=== PATIENT | male | born 1945 | race American Indian/Alaskan Native ===

== ENCOUNTER 2019-05-08 09:17 | Outpatient (CLI) | payer MEDICARE ==
--- NOTE | 2019-05-08 13:19 | Cat Scan Report ---
CT ABDOMEN AND PELVIS WITHOUT CONTRAST HISTORY: C61) - Malignant neoplasm of prostate COMPARISON: Bone scan performed the same day TECHNIQUE: Axial CT images were obtained through the abdomen and pelvis without IV contrast. Sagittal and coronal reformatted images. All CT scans at this location are performed using CT dose reduction for ALARA by means of automated exposure control. FINDINGS: CT ABDOMEN: Lung Bases: Clear. Liver: There are scattered liver hypodensities consistent with cysts or hemangiomas measuring up to 2 .5 cm. No suspicious liver mass or parenchymal disease. Biliary: Tiny gallstones are noted in the fundus of the gallbladder. No biliary dilatation. Spleen: No significant abnormality. Unenlarged. Pancreas: No significant abnormality. Adrenals: No significant abnormality. Kidneys: 3 simple cysts in the left kidney measuring up to 3 cm. A 1 cm hemorrhagic cyst is noted violet r the inferior pole. The right kidney and collecting systems are unremarkable. Lymphatics: No lymphadenopathy. Vasculature: There are moderate diffuse aortic calcifications. Infrarenal AAA measures 4.0 cm in diam eter Bowel/Peritoneum: No significant abnormality. No free air. No free fluid. Normal appendix. CT PELVIS: : The bladder and distal ureters are unremarkable. The prostate gland is mildly enlarged measuring 5.2 cm in diameter. Osseous Structures: No suspicious bony lesion is identified. Additional Findings: None IMPRESSION: No evidence for metastatic disease. Liver and kidney cysts as described. Cholelithiasis. 4.0 cm infrarenal AAA. Mildly enlarged prostate gland. Signer Name: Hernando Siu Jr, MD Signed: 05/08/2019 1:15 PM Workstation Name: [id number]
--- NOTE | 2019-05-08 13:20 | Nuclear Medicine Report ---
NUCLEAR MEDICINE BONE SCAN, WHOLE BODY INDICATION: C61 - Malignant neoplasm of prostate. TECHNIQUE: 25 mCi of Tc-99m MDP were injected IV. Whole body images were obtained. COMPARISON: Noncontrast CT abdomen pelvis performed same day.. FINDINGS: Skeletal Structures: There is homogeneous skeletal uptake throughout. . Skeletal Lesions: None. Soft Tissues: Normal. Kidneys: Normal, symmetric activity. Additional Findings: None. IMPRESSION: No evidence for metastatic disease to the bones.. Signer Name: Hernando Siu Jr, MD Signed: 05/08/2019 1:15 PM Workstation Name: [id number]
== END 2019-05-08 09:18 | disposition home or self-care (01) ==
LOC: NM 09:17
PROVIDERS: ATTEND Urology
DX: K80.20 Calculus of gallbladder without cholecystitis without obstruction (principal); K76.89 Other specified diseases of liver; N28.1 Cyst of kidney, acquired; I71.4 Abdominal aortic aneurysm, without rupture; N40.0 Benign prostatic hyperplasia without lower urinary tract symptoms
CPT/HCPCS: 74176; 78306; A9503

== ENCOUNTER 2019-10-07 06:32 | Observation (INO) | payer MEDICARE ==
[2019-10-03 09:54] LABS: Basophils # (Auto) 0.1 K/mm3 (0.0-0.1); Basophils % (Auto) 1.2 % (0.0-1.8); Eosinophils # (Auto) 0.1 K/mm3 (0.0-0.4); Eosinophils % (Auto) 1.4 % (0.0-4.3); Lymphocytes # (Auto) 2.6 K/mm3 (1.2-5.4); Lymphocytes % (Auto) 35.8 % (13.4-35.0); Mean Corpuscular HGB Conc 33 % (32-34); Mean Corpuscular Volume 87 fl (84-94); Monocytes # (Auto) 0.6 K/mm3 (0.0-0.8); Monocytes % (Auto) 8.3 % (0.0-7.3); Platelet Count 260 K/mm3 (140-440); Red Blood Count 4.96 M/mm3 (3.65-5.03)
--- NOTE | 2019-10-03 10:08 | Anesthesia Consultation ---
Anesthesia Consult and Med Hx Date of service: 10/03/19 - Airway Anesthetic Teeth Evaluation: Poor (loose, broken ) ROM Head & Neck: Adequate Mental/Hyoid Distance: Adequate Mallampati Class: Class III Intubation Access Assessment: Probably Good - Pulmonary Exam CTA: Yes - Cardiac Exam Cardiac Exam: RRR - Pre-Operative Health Status ASA Pre-Surgery Classification: ASA3 Proposed Anesthetic Plan: General - Pre-Anesthesia Comment Pre-Anesthesia Comments: instructed patient to refrain from marijuana use prior to surgery. 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
[2019-10-03 10:13] LABS: Alanine Aminotransferase 8 units/L (7-56); Albumin 3.9 g/dL (3.9-5); BUN/Creatinine Ratio 10; Blood Urea Nitrogen 11 mg/dL (9-20); Calcium 9.2 mg/dL (8.4-10.2); Hemolysis Index 29
[~2019-10-07 06:32] MED LIST: ACETAMINOPHEN 500 MG TAB PO ONE; CELECOXIB 200 MG CAP PO NR; GABAPENTIN 300 MG CAP PO NR; ceFAZolin/Water 2 GM/20 ML 2 GM/20 ML SYRINGE IV NR
[2019-10-07] MEDS ORDERED: BACTERIOSTATIC SODIUM CHLORIDE 0.9% 30 ML VIAL INFILTRATI ONE (06:56)
[2019-10-07] MEDS ORDERED: CALCIUM CHLORIDE 1,000 MG/10 ML SYRINGE IV ONE (07:17)
[2019-10-07] MEDS ORDERED: BUPIVACAINE-EPINEPHRINE/PF 0.5%-1:200,000 (30 ML) VIAL INFILTRATI ONE ×2 (07:17→09:59)
[2019-10-07] MEDS ORDERED: CITRIC ACID-SOD CITRATE 500 ML IV ONE (07:17)
[2019-10-07] MEDS ORDERED: THROMBIN (RECOMBINANT) 5,000 UNIT VIAL TP ONE (07:18)
[2019-10-07] MEDS ORDERED: METHYLENE BLUE 50 MG/10 ML AMP ONE (07:18)
[2019-10-07] MEDS: LACTATED RINGERS 1,000 ML IV SCH ×2 (07:30→15:18)
[2019-10-07] MEDS ORDERED: PROPOFOL 200 MG/20 ML VIAL IV ONE (07:43)
[2019-10-07] MEDS ORDERED: fentaNYL 100 MCG/2 ML INJ ONE (07:43)
[2019-10-07] MEDS ORDERED: SUCCINYLCHOLINE CHLORIDE 200 MG/10 ML INJ MDV ONE (07:46)
[2019-10-07] MEDS ORDERED: ROCURONIUM 50 MG/5 ML INJ IV ONE (07:46)
[2019-10-07] MEDS ORDERED: dexAMETHasone 20 MG/5 ML VIAL ONE (07:46)
[2019-10-07] MEDS ORDERED: ONDANSETRON 4 MG/2 ML INJ ONE (07:46)
[2019-10-07] MEDS ORDERED: LIDOCAINE PF 100 MG/5 ML (CARDIAC SYRINGE) IV ONE (07:46)
[2019-10-07] MEDS ORDERED: ePHEDrine SULFATE 50 MG/1 ML INJ ONE (08:51)
--- NOTE | 2019-10-07 09:06 | Anesthesia Day of Surgery ---
Anesthesia Day of Surgery - Day of Surgery Patient Examined: Yes Patient H&P Reviewed: Yes Patient is NPO: Yes
[2019-10-07] MEDS ORDERED: fentaNYL 100 MCG/2 ML INJ IV PRN (09:07)
[2019-10-07] MEDS ORDERED: SODIUM CHLORIDE 0.9% IRRIG SOLN 2000 ML IR ONE (09:59)
[2019-10-07] MEDS ORDERED: WATER FOR IRRIG STERILE 1,500 ML BOTTLE IR ONE (09:59)
[2019-10-07] MEDS ORDERED: METHYLENE BLUE 50 MG/10 ML AMP IV ONE (10:08)
[2019-10-07] MEDS ORDERED: GLYCOPYRROLATE 0.4 MG/2 ML INJ ONE (10:45)
[2019-10-07] MEDS ORDERED: NEOSTIGMINE 10MG/10 ML INJ MDV ONE (10:45)
[2019-10-07] MEDS ORDERED: LACTATED RINGERS 1,000 ML ONE (10:49)
[2019-10-07] MEDS ORDERED: DEXTROSE 50% IN WATER (25GM) 50 ML SYRINGE IV PRN (11:13)
[2019-10-07] MEDS ORDERED: NALOXONE 0.4 MG/1 ML INJ IV PRN (11:13)
[2019-10-07] MEDS ORDERED: ZOLPIDEM 5 MG TAB PO PRN (11:13)
[2019-10-07] MEDS ORDERED: MORPHINE 2 MG/1 ML INJ IV PRN (11:13)
[2019-10-07] MEDS ORDERED: ONDANSETRON 4 MG/2 ML INJ IV PRN (11:13)
--- NOTE | 2019-10-07 11:13 | Short Stay Summary ---
Short Stay Documentation Date of service: 10/07/19 - History H&P: obtained from office - Allergies and Medications Current Medications: Allergies No Known Allergies Allergy (Verified 09/30/19 11:48) Home Medications Medication Instructions Recorded Confirmed Last Taken Type Tamsulosin [Flomax] 0.4 mg PO QDAY 09/30/19 09/30/19 Unknown History amLODIPine [Norvasc] 10 mg PO DAILY 09/30/19 10/07/19 10/07/19 04:30 History bisoproloL fumarate [Bisoprolol 5 mg PO DAILY 09/30/19 10/07/19 10/06/19 History Fumarate] Active Medications Celecoxib (Celebrex) 200 mg PO PREOP NR Stop: 10/07/19 23:59 Last Admin: 10/07/19 07:00 Dose: 200 mg Documented by: Fentanyl (Sublimaze) 50 mcg IV Q5MIN PRN PRN Reason: Pain , Severe (7-10) Stop: 10/07/19 23:00 Gabapentin (Gabapentin) 300 mg PO PREOP NR Stop: 10/07/19 23:59 Last Admin: 10/07/19 07:00 Dose: 300 mg Documented by: Cefazolin Sodium (Ancef/Sterile Water 2 Gm/20 Ml) 2 gm in 20 mls @ 80 mls/hr IV PREOP NR; Protocol Stop: 10/07/19 23:00 Lactated Ringer's (Lactated Ringers) 1,000 mls @ 100 mls/hr IV DIRECT PRIYANK Last Admin: 10/07/19 07:30 Dose: 100 mls/hr Documented by: - Brief post op/procedure progress note Date of procedure: 10/07/19 Pre-op diagnosis: prostate cancer Post-op diagnosis: same Procedure: robotic prostatectomy Anesthesia: GETA Surgeon: ANNMARIE NANCE Estimated blood loss: other (250cc) Pathology: list (prostate) Condition: stable - Hospital course Hospital course: post op info on chart pt has bactrim & norco at home low k---supplemented - Disposition Condition at discharge: Stable Short Stay Discharge Plan Follow up with: ALE POPE MD [Primary Care Provider] - 7 Days
[2019-10-07] MEDS ORDERED: SODIUM CHLORIDE 0.9% 1000 ML 1,000 ML IV SCH (11:15)
--- NOTE | 2019-10-07 11:44 | Operative Report ---
PREOPERATIVE DIAGNOSIS: Prostate cancer. POSTOPERATIVE DIAGNOSIS: Prostate cancer. PROCEDURE: Robotic-assisted laparoscopic prostatectomy. SURGEON: Tera Stuart MD AMUSEMENT CENTRE MANAGER: Demi Morales. ANESTHESIA: General. ESTIMATED BLOOD LOSS: 250 mL. FLUIDS: Crystalloid, Cell Saver. Mata-Gilliam drain x 1. INDICATIONS: This is a 74-year-old gentleman seen in the office with an elevated PSA of 16. He underwent transrectal ultrasound and biopsy of his prostate. He was found to have Hartley 9 adenocarcinoma of the prostate for 14 cores. Discussed options. He agreed to proceed with surgical intervention. He received medical clearance by Dr. Hearn. DESCRIPTION OF PROCEDURE: The patient was taken to the operative suite, placed in a supine position. After adequate general anesthesia, he was prepped and draped in a sterile fashion. Hammond catheter was placed on the operative field. A 1 cm supraumbilical incision was made with the Bovie. Towel clips were placed. Anterior traction was used and then Veress needle was placed. Drop test was negative. Opening intra-abdominal pressure was 4 cm of water. Insufflation to 15 cm of water was performed without difficulty. A 15 cm cephalad, the pubic symphysis was marked and then 9 cm lateral and additional 9 cm lateral was marked for port placement; 8 mm ports was scored. The 0 degree lens was placed in the supraumbilical port without difficulty. No injury could be appreciated. The rest of the ports were then placed under direct vision as well, the 8 mm port and then there were two helper ports on the right side 12 mm and a 5 mm The patient was then placed in exaggerated Trendelenburg position. Second arch was identified. It was scored exposing the seminal vesicles and vas deferens. Dissection to the apex of the prostate was performed without difficulty. Seminal vesicles and vas deferens were dissected out. Vas deferens was then cauterized and transected. Copious irrigation was performed. Adequate hemostasis was achieved. Attention was then taken to the anterior abdominal wall, which was scored lateral to the lateral umbilical ligament and taken down to the pubic rami. Bladder flap was then taken down. Dorsal vein complex was exposed. It was controlled with a 60 mm vascular stapler. Manipulation of the Hammond was performed. I could identify the bladder neck. It was transected anteriorly exposing the Hammond. Obvious large median lobe could be appreciated. Indigo carmine was administered intravenously. The Hammond was deflated used for anterior traction. Posterior bladder neck was transected. Ureteral orifices could be appreciated bilaterally and were uninjured. Vas deferens and seminal vesicles were pulled anteriorly exposing the lateral pedicles. Left lateral pedicle was taken down with a 45 mm vascular stapler, 60 mm vascular stapler on the right side, the pedicle was not as bulky and was taken down with shona. Neurovascular bundle could not be appreciated. Attention was taken to the apex of the prostate. It was dissected. The urethra was transected and then the rest of the prostate dissected off of the rectum. It was placed in the EndoCatch bag. Copious irrigation was performed. Adequate hemostasis achieved. The rectum was uninjured. Next, attention was taken to the bladder neck, which bladder neck reconstruction at the 5 o'clock and 7 o'clock positions was performed with 2-0 Vicryl in interrupted fashion. Again, the ureteral orifices were uninjured. Double armed V-Loc was placed at the 6 o'clock position of the bladder neck and corresponding aspect of the urethra, running stitch was placed bilaterally. A new 18-Hungarian Hammond was placed into the urethra and bladder, 15 mL of sterile water in the balloon. The V-Loc stitch was cinched down. Irrigation of the bladder, no clots could be appreciated. The V-Loc stitch was then placed into the pubic rami as a bladder suspension MMK type. Emmalena were removed. Platelet-rich plasma was injected as well as platelet poor plasma and then over the anastomosis was a platelet membrane. Mata-Gilliam drain was brought out on the left side through the 8 mm port, secured into position with 2-0 silk. The patient was then placed in the supine position. The robot was undocked. The supraumbilical incision was extended to allow removal of the prostate. Rectus fascia was closed with 0 Vicryl in a [id number]-ibdaz fashion. Skin was closed with 2-0 Vicryl in interrupted fashion. Hammond catheter the site port was folded over and secured with 0 silk in interrupted fashion. The patient tolerated the procedure well. Demi Morales was present throughout the case at the bedside to assist with surgical dissection. JOB# [id number] [facility]
[2019-10-07] MEDS ORDERED: HYDROcodone/ACETAMINOPHEN 5-325 MG TAB PO PRN (12:00)
[2019-10-07] MEDS: ceFAZolin/NS 1 GM/50 ML 1 GM/50 ML BAG IV SCH ×2 (19:39→22:41)
--- NOTE | 2019-10-07 20:10 | Consultation ---
History of Present Illness - Reason for Consult Consult date: 10/07/19 Medical management Requesting physician: ANNMARIE NANCE - History of Present Illness S/p robotic prostatectomy. Postop patient doing well. No complications. Past History Past Medical History: hypertension, other (BPH) Past Surgical History: Other (Robotic prostatectomy) Social history: lives with family, full code Family history: hypertension Medications and Allergies Allergies Allergy/AdvReac Type Severity Reaction Status Date / Time No Known Allergies Allergy Verified 09/30/19 11:48 Home Medications Medication Instructions Recorded Confirmed Last Taken Type Tamsulosin [Flomax] 0.4 mg PO QDAY 09/30/19 09/30/19 Unknown History amLODIPine [Norvasc] 10 mg PO DAILY 09/30/19 10/07/19 10/07/19 04:30 History bisoproloL fumarate [Bisoprolol 5 mg PO DAILY 09/30/19 10/07/19 10/06/19 History Fumarate] Active Meds: Active Medications Acetaminophen/Hydrocodone Bitart ([place] 5/325) 2 each PO Q4H PRN PRN Reason: Pain, Moderate (4-6) Amlodipine Besylate (Amlodipine) 10 mg PO DAILY PRIYANK Stop: 10/08/19 13:00 Celecoxib (Celebrex) 200 mg PO PREOP NR Stop: 10/07/19 23:59 Last Admin: 10/07/19 07:00 Dose: 200 mg Documented by: Dextrose (D50w (25gm) Syringe) 50 ml IV Q30MIN PRN; Protocol PRN Reason: Hypoglycemia Fentanyl (Sublimaze) 50 mcg IV Q5MIN PRN PRN Reason: Pain , Severe (7-10) Stop: 10/07/19 23:00 Gabapentin (Gabapentin) 300 mg PO PREOP NR Stop: 10/07/19 23:59 Last Admin: 10/07/19 07:00 Dose: 300 mg Documented by: Cefazolin Sodium (Ancef/Sterile Water 2 Gm/20 Ml) 2 gm in 20 mls @ 80 mls/hr IV PREOP NR; Protocol Stop: 10/07/19 23:00 Lactated Ringer's (Lactated Ringers) 1,000 mls @ 100 mls/hr IV DIRECT PRIYANK Last Admin: 10/07/19 15:18 Dose: 100 mls/hr Documented by: Sodium Chloride (Nacl 0.9% 1000 Ml) 1,000 mls @ 100 mls/hr IV DIRECT PRIYANK Cefazolin Sodium (Ancef/Ns 1 Gm/50 Ml) 1 gm in 50 mls @ 100 mls/hr IV Q8HR [facility]; Protocol Stop: 10/07/19 22:29 Last Admin: 10/07/19 19:39 Dose: Not Given Documented by: Miscellaneous Medication (Bisoprolol Fumarate [Bisoprolol Fumarate]) 5 mg PO DAILY [facility] Morphine Sulfate (Morphine) 2 mg IV Q4H PRN PRN Reason: Pain, Moderate (4-6) Naloxone HCl (Naloxone) 0.1 mg IV Q2MIN PRN PRN Reason: Res Rate </= 8 or 02 SAT < 92% Ondansetron HCl (Zofran) 4 mg IV Q8H PRN PRN Reason: Nausea And Vomiting Zolpidem Tartrate (Ambien) 5 mg PO QHS PRN PRN Reason: Sleep Review of Systems All systems: negative Exam - Constitutional Vitals: Temp Pulse Resp BP Pulse Ox 97.7 F 58 L 20 134/63 90 10/07/19 19:23 10/07/19 19:23 10/07/19 19:23 10/07/19 19:23 10/07/19 19:23 General appearance: Present: no acute distress, well-nourished - EENT Eyes: Present: PERRL ENT: hearing intact, clear oral mucosa - Neck Neck: Present: supple, normal ROM - Respiratory Respiratory effort: normal Respiratory: bilateral: CTA - Cardiovascular Heart rate: 78 Rhythm: regular Heart Sounds: Present: S1 & S2. Absent: rub, click - Extremities Extremities: no ischemia, pulses intact, pulses symmetrical, No edema Peripheral Pulses: within normal limits - Abdominal General gastrointestinal: Present: soft, non-tender, non-distended, normal bowel sounds Male genitourinary: Present: normal - Rectal Rectal Exam: deferred - Integumentary Integumentary: Present: clear, warm, dry - Musculoskeletal Musculoskeletal: gait normal, strength equal bilaterally - Psychiatric Psychiatric: appropriate mood/affect, intact judgment & insight - Neurologic Neurologic: CNII-XII intact, moves all extremities Results - Labs CBC & Chem 7: 10/08/19 07:27 10/08/19 07:27 Labs: Abnormal lab results 10/07/19 Range/Units 11:53 POC Glucose 136 H (70-105) Short CBC 10/08/19 Range/Units 07:27 WBC 6.9 (4.5-11.0) K/mm3 Hgb 11.7 L (11.8-15.2) gm/dl Hct 34.6 L (35.5-45.6) % Plt Count 203 (140-440) K/mm3 BMP 10/08/19 07:27 Sodium 140 Potassium 3.2 L Chloride 105.9 Carbon Dioxide 24 BUN 11 Creatinine 1.3 Glucose 102 H Calcium 8.6 Assessment and Plan - Patient Problems (1) Hypertension Current Visit: Yes Status: Chronic Qualifiers: Hypertension type: essential hypertension Qualified Code(s): I10 - Essential (primary) hypertension Plan to address problem: Continue antihypertensives and adjust medications as necessary (2) History of robot-assisted laparoscopic radical prostatectomy Current Visit: Yes Status: Acute Plan to address problem: Postop patient doing well No complications (3) Hypokalemia Current Visit: Yes Status: Acute Plan to address problem: Supplemented (4) DVT prophylaxis Current Visit: Yes Status: Acute Plan to address problem: On SCDs and GI prophylaxis
[2019-10-08] MEDS: LACTATED RINGERS 1,000 ML IV SCH (01:17)
[2019-10-08 07:52] LABS: Basophils % (Auto) 0.4 % (0.0-1.8); Eosinophils # (Auto) 0.1 K/mm3 (0.0-0.4); Eosinophils % (Auto) 1.1 % (0.0-4.3); Hematocrit 34.6 % (35.5-45.6); Hemoglobin 11.7 gm/dl (11.8-15.2); Lymphocytes # (Auto) 1.3 K/mm3 (1.2-5.4); Lymphocytes % (Auto) 19.6 % (13.4-35.0); Mean Corpuscular HGB Conc 34 % (32-34); Mean Corpuscular Volume 86 fl (84-94); Monocytes # (Auto) 0.6 K/mm3 (0.0-0.8); Monocytes % (Auto) 9.1 % (0.0-7.3); Platelet Count 203 K/mm3 (140-440); Red Blood Count 4.01 M/mm3 (3.65-5.03); Red Cell Distribution Width 15.8 % (13.2-15.2)
[2019-10-08 08:14] LABS: BUN/Creatinine Ratio 8; Blood Urea Nitrogen 11 mg/dL (9-20); Calcium 8.6 mg/dL (8.4-10.2); Hemolysis Index 6
[2019-10-08] MEDS ORDERED: POTASSIUM CHLORIDE ER 20 MEQ TAB PO NR (08:22)
--- NOTE | 2019-10-08 08:24 | Progress Note ---
Assessment and Plan - Patient Problems (1) Hypertension Current Visit: Yes Status: Chronic Qualifiers: Hypertension type: essential hypertension Qualified Code(s): I10 - Essential (primary) hypertension Plan to address problem: Continue antihypertensives and adjust medications as necessary (2) History of robot-assisted laparoscopic radical prostatectomy Current Visit: Yes Status: Acute Plan to address problem: Postop patient doing well No complications (3) Hypokalemia Current Visit: Yes Status: Acute Plan to address problem: Supplemented (4) DVT prophylaxis Current Visit: Yes Status: Acute Plan to address problem: On SCDs and GI prophylaxis Subjective Date of service: 10/08/19 Principal diagnosis: S/p robotic prostatectomy Interval history: S/p robotic prostatectomy--- postop doing well . No complaints Objective - Constitutional Vitals: Vital Signs - 12hr 10/07/19 10/08/19 23:42 03:45 Temperature 98.1 F 98.4 F Pulse Rate 61 62 Respiratory 20 20 Rate Blood Pressure 124/62 124/61 O2 Sat by Pulse 94 95 Oximetry General appearance: Present: no acute distress, well-nourished - EENT Eyes: PERRL, EOM intact ENT: hearing intact, clear oral mucosa Ears: bilateral: normal - Neck Neck: supple, normal ROM - Respiratory Respiratory effort: normal Respiratory: bilateral: CTA - Breasts Breasts: normal - Cardiovascular Rhythm: regular Heart Sounds: Present: S1 & S2. Absent: gallop, rub Extremities: pulses intact, No edema, normal color, Full ROM - Gastrointestinal General gastrointestinal: Present: soft, non-tender, non-distended, normal bowel sounds - Genitourinary Male genitourinary: normal - Integumentary Integumentary: clear, warm, dry - Musculoskeletal Musculoskeletal: 1, strength equal bilaterally - Neurologic Neurologic: moves all extremities - Psychiatric Psychiatric: memory intact, appropriate mood/affect, intact judgment & insight - Labs CBC & Chem 7: 10/08/19 07:27 10/08/19 07:27 Labs: Abnormal lab results 10/07/19 10/08/19 10/08/19 Range/Units 11:53 07:27 07:27 Hgb 11.7 L (11.8-15.2) gm/dl Hct 34.6 L (35.5-45.6) % RDW 15.8 H (13.2-15.2) % [place] % (Auto) 9.1 H (0.0-7.3) % Potassium 3.2 L (3.6-5.0) mmol/L Glucose 102 H (75-100) mg/dL POC Glucose 136 H (70-105)
[2019-10-08] MEDS: ceFAZolin/NS 1 GM/50 ML 1 GM/50 ML BAG IV SCH (08:48)
[2019-10-08] MEDS ORDERED: BISOPROLOL FUMARATE 5 MG PO SCH (10:00)
[2019-10-08] MEDS ORDERED: atenoloL 50 MG TAB PO SCH (10:00)
[2019-10-08] MEDS ORDERED: amLODIPine 10 MG TAB PO SCH (10:00)
[2019-10-08 12:26] VITALS: BP 133/56
== END 2019-10-08 14:25 | disposition home or self-care (01) ==
LOC: OR 06:32 → 3B-SURG 11:13
PROVIDERS: ADMIT Urology; ATTEND Urology
DX: C61 Malignant neoplasm of prostate (principal)
CPT/HCPCS: 36415; 55866; 80048; 80053; 82962; 85025; 86850; 86900; 86901; 88309; 88342; 96365; 96366; A4217; G0378; J0330; J0690; J2001; J2405; J2704; J2710; J3010; J7120; Q9968; S2900; 88344; J1100